=== PATIENT | female | born 1990 | race Caucasian/White ===

== ENCOUNTER 2024-10-15 10:27 | Emergency (ER) | payer OTHER, SELFPAY ==
[2024-10-15 10:39] VITALS: BP 129/87; PULSE 87; RESP 16; TEMP 37.2; O2SAT 99
--- NOTE | 2024-10-15 10:47 | ED.HA ---
HPI - Headache General Chief Complaint: Headache Stated Complaint: Headache Time Seen by Provider: 10/15/24 10:31 Source: patient Mode of arrival: ambulatory Limitations: no limitations Review of Systems Review of Systems: All systems reviewed & are unremarkable except as noted in HPI and below Constitutional: Constitutional: Denies body ache(s), Denies chills, Denies fatigue, Denies fever(s), Denies headache(s), Denies malaise and Denies weakness Eyes: Eyes: Denies blurry vision, Denies irritation and Denies loss of vision ENT: Denies otalgia, Denies headache(s), Denies nasal discharge, Denies sinus pain and Denies sore throat Cardiovascular: Cardiovascular: Denies chest pain, Denies irregular heart rhythm and Denies dyspnea Respiratory: Respiratory: Denies dyspnea Gastrointestinal: Gastrointestinal: Denies abdominal pain, Denies melena, Denies hematochezia, Denies diarrhea, Denies nausea and Denies vomiting Musculoskeletal: Musculoskeletal: Denies back pain, Denies myalgias and Denies arthralgias Integumentary/Breasts: Skin/Breast: Denies pruritus and Denies rash Neurologic: Denies headache(s), Denies loss of vision and Denies weakness Psychiatric: Psychiatric: Reports no additional psychiatric complaints Endocrine: Endocrine: Denies fatigue PMFSH Comments At time of signature, agree with nursing past medical, surgical, social and family history. There is no relevant family history pertinent to the presenting complaint. Exam Const: General: cooperative, healthy appearing, comfortable, no acute distress and well nourished Nutritional Appearance: well nourished Orientation/consciousness: patient oriented x3 Limitations: no limitations HENMT: Head: normal to inspection, normocephalic and atraumatic Ears: hearing grossly normal bilaterally and external ears normal Face/Nose/Sinus: Normal external nose present, normal facial exam and face symmetric Face and sinus: normal facial exam and face symmetric Mouth: Yes lip normal Eyes: General: appearance normal, both eyes and all related structures Alignment and Position: alignment normal and position normal Periorbital: periorbital findings normal Eyelids: eyelids normal Pupils: Equal, round and reactive pupils present EOM: EOMs intact bilaterally Neck: Neck: normal visual inspection, full ROM and supple Chest: Chest palpation & inspection: normal inspection of the chest Resp: Effort & Inspection: normal respiratory effort and able to speak in complete sentences Auscultation: clear to auscultation bilaterally Cardio: Rate: regular rate Rhythm: regular rhythm Heart sounds: S1 normal heart sound present and S2 normal heart sound present GI: Inspection: normal to inspection Skin: General skin exam: normal color and no rashes or lesions noted Neuro: General: patient oriented x3 and moves all extremities Cranial nerves: Yes Equal, round and reactive pupils present Speech: normal speech Gait exam (Neuro): Normal gait present Extrem: General: normal to inspection, full ROM and no edema Psych: Appearance: grossly normal and well kempt Mental Status: mental status grossly normal Speech and movement: Normal speech and movement present Affect: normal affect Attitude: cooperative Thought process: Normal thought process present Course Course Emergency Course: Patient is aware of diagnosis, understands and agrees to treatment plan. Anticipatory guidance given. Patient agrees to follow-up as directed and is aware of reasons to seek care at the emergency department. Portions of this record may have been created with voice recognition software Level of Care: Express Care Visit Vital Signs Vital signs: Vital Signs Temperature 37.2 C 10/15/24 10:39 Pulse Rate 87 10/15/24 10:39 Respiratory Rate 16 10/15/24 10:39 Blood Pressure 129/87 10/15/24 10:39 Pulse Oximetry 99 10/15/24 10:39 Temperature 37.2 C 10/15/24 10:39 Pulse Rate 87 10/15/24 10:39 Respiratory Rate 16 10/15/24 10:39 Blood Pressure 129/87 10/15/24 10:39 Pulse Oximetry 99 10/15/24 10:39 Reviewed Discharge Plan Discharge Patient Language: Kinyarwanda Follow-up/Referrals: PHYSICIAN,GARNETT MACHINE OPERATOR HELPER [Primary Care Provider] -
--- NOTE | 2024-10-15 10:57 | ED_ITS ---
HPI - Headache General Chief Complaint: Headache Stated Complaint: Headache Time Seen by Provider: 10/15/24 10:31 Source: patient and RN notes reviewed Mode of arrival: ambulatory Limitations: no limitations History of Present Illness HPI Narrative: Patient is a pleasant 34-year-old female who denies any significant past medical history who presents to the [facility] ambulatory with a steady a prior so for evaluation of continued head pain. Patient states that this initially started on the 27 of September when she started having a a sensation and had some vision changes on the right and a pulsating/pounding headache. She had also thought her neck was a little sore at that time like she had been sleeping on it weird so she wasn't sure if at first it was just that. She states that she and her friend did go to the emergency department at that time but sat in the parking lot and had went away so she was not seen at that time. She states that she is here from [place] and attending [employer]. She states that she was home in [place] at the time this happened. She states she followed up with her primary and the wool washer before returning here for school on the or . She states that on the (3 days )ago she went to [place] for the continued pain in her head and she had a full workup including labs and CT of the head as well as MRI. She was prescribed Zofran and Maxalt and advised to follow-up with Neurology was given to different referrals. Patient states she tried to call the Neurology office referrals but the stated she had to have a different referral. Patient states that she does not seem to notice the pain whenever she is doing something or staying busy but whenever she is not especially when she is trying to go to sleep it is much worse. She has tried taking Tylenol and ibuprofen which does not really seem to change it. She states that the discomfort has continued since the and has not really gotten better or worse per se. She states that she just does not feel like herself and is not able to sleep well and just does not know what to do at this point and is feeling a little bit anxious and worried about everything. She is here alone for school and lives alone. She states that yesterday she did take the medication she was prescribed and then tried to sleep but only slept for about 2-1/2 hours. 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 At this current time patient denies any fever, chills, chest pain, shortness a breath, dizziness, vision changes, numbness or tingling to upper or lower extremities,nausea, neck pain, vomiting, abdominal pain, cough, sore throat, ear pain, gait abnormality, bilateral weakness, rash, or any other current symptoms. Related Data Home Medications ?Medication ?Instructions ?Recorded ?Confirmed ?Last Taken ?Type ondansetron 4 mg disintegrating mg 10/15/24 Unknown History tablet rizatriptan 10 mg tablet mg 10/15/24 Unknown History Allergies Allergy/AdvReac Type Severity Reaction Status Date / Time Penicillins Allergy Intermediate Rash Verified 10/15/24 11:04 Sulfa (Sulfonamide Allergy Intermediate Rash Verified 10/15/24 11:04 Antibiotics) Review of Systems Review of Systems: CONSTITUTIONAL: Denies fever, chills, or sweats. EYES: Denies current visual changes, redness, or discharge. ENT: Denies rhinorrhea, congestion, sore throat, or otalgia. CARDIOVASCULAR: Denies chest pain, palpitations, or edema. RESPIRATORY: Denies cough or dyspnea. GASTROINTESTINAL: nausea and vomiting yesterday. Denies abdominal pain or diarrhea. GENITOURINARY: Denies dysuria or hematuria. SKIN: Denies rash or itching. MUSCULOSKELETAL: Denies back pain, joint pain, or myalgia. NEUROLOGIC: headache. Denies numbness, or weakness. PSYCHIATRIC: Anxiety at times. Denies depression. All systems reviewed & are unremarkable except as noted in HPI and below Exam Narrative: GENERAL: Well-appearing, well-nourished, and in no acute distress. appears fatigued/tired with some dark circles under eyes from lack of sleep. She is tear ful during conversation but appropriate for situation. HEAD: Normocephalic, atraumatic. EYES: PERRLA and EOMI. ENT: Nares clear, no rhinorrhea or epistaxis. Mucous membranes moist. NECK: Supple. No meningeal signs. CHEST: Clear to auscultation. No respiratory distress. HEART: Regular rate and rhythm. No murmur heard. Normal peripheral pulses. EXTREMITIES: ROM grossly intact. No edema. SKIN: Warm, dry, no rash. NEURO: No focal deficits. Alert and oriented x3. CN II-XII grossly intact. Steady gait. PSYCH: tearful/sad. denies suicidal ideations. normal insight/judgement. normal memory. Course Course Emergency Course: Patient is aware of diagnosis, understands and agrees to treatment plan. Anticipatory guidance given. Patient agrees to follow-up as directed and is aware of reasons to seek care at the emergency department. Portions of this record may have been created with voice recognition software Level of Care: Express Care Visit Vital Signs Vital signs: Vital Signs Temperature 37.2 C 10/15/24 10:39 Pulse Rate 87 10/15/24 10:39 Respiratory Rate 16 10/15/24 10:39 Blood Pressure 129/87 10/15/24 10:39 Pulse Oximetry 99 10/15/24 10:39 Temperature 37.2 C 10/15/24 10:39 Pulse Rate 87 10/15/24 10:39 Respiratory Rate 16 10/15/24 10:39 Blood Pressure 129/87 10/15/24 10:39 Pulse Oximetry 99 10/15/24 10:39 MDM - Headache MDM Narrative Medical decision making narrative: Pt well hydrated appearing, in no respiratory distress, hemodynamically stable. Recommend supportive care and Atarax as needed for anxiety. She has had full workup including labs/CT/MRI. The patient is stable at time of discharge the clinical impression was discussed and the patient was given the opportunity to ask questions, which were addressed as completely as possible given the information available at present. ?Anticipatory guidance and return to care precautions were discussed and the importance of primary care follow-up was stressed and encouraged. ?The patient voiced understanding of the plan, indications to return, and the need for follow-up. Exam findings show no acute concerns or changes at this time. Patient is appropriate for outpatient treatment and follow-up. Differential Diagnosis Differential diagnosis: Likely migraine and headache Medical Records Attestation: I reviewed the patient's medical records. Medical records narrative: reviewed the paperwork from [facility] ER. did cbc, cmp, preg test. Also showed me the CT/MRI which a quick review of the impression showed concerns of a increased prominent [place]chow Fransico-space. She was advised to f/u with neurology and PCP and then ophthalmology which she had done. Lab Data Attestation: I reviewed the patient's lab results. Discharge Plan Discharge Clinical Impression: Headache, Anxiety about health Patient Disposition: Home, Self-Care Condition: Stable Instructions: Antibiotic Form, Acute Headache (ED), Anxiety (ED) Additional Instructions: As we discussed the Hydroxyzine (Atarax) can be taken every 6-8 hours as needed for anxiety. The prescription is for 10 mg tablet for each dose. As we discussed if this does not seem to help you, you can add an additional 10 mg tablet to equal to 20 mg. Continue to use the other medication if needed that you were prescribed. Reach out to the emergency department to talk about the referrals they gave you. Stay in close touch with your primary care provider. Try to rest today, increase your fluid intake (make sure you're getting proper electrolytes as well) and ensuring you are eating a well balanced diet. I have also given you the Neurologist here at [place] you can try to get into as well. Dr Lee Patient Language: [place] Island[place] Prescriptions: New hydroxyzine HCl 10 mg tablet 10 mg PO TID PRN (Reason: anxiety) Qty: 30 0RF No Action rizatriptan 10 mg tablet ondansetron 4 mg tablet,disintegrating Follow-up/Referrals: Jannie Lee MD [Physician] - PHYSICIAN,ANESTHESIOLOGY TECHNOLOGIST [Primary Care Provider] - Bridger Wahl MD [Physician] - Time of Disposition: 11:35
== END 2024-10-15 11:40 | disposition home or self-care (01) ==
PROVIDERS: Emergency Provider Nurse Practitioner Family
DX: R51.9 Headache, unspecified (principal); F41.9 Anxiety disorder, unspecified
CPT/HCPCS: 99203; G0463